=== PATIENT | female | born 1945 ===

== ENCOUNTER → 2017-10-15 14:47 | Outpatient (CLI) | payer MEDICARE ==
[2017-10-15 15:52] LABS: ALBUMIN 3.2 g/dL (3.4-5.0); ANION GAP 1.7 mmol/L (8-16); BILIRUBIN - TOTAL 0.29 mg/dL (0.2-1.3); CALCIUM 8.5 mg/dL (8.5-10.1); CREATININE - SERUM 1.1 mg/dL (0.6-1.3); POTASSIUM - SERUM 3.4 mmol/L (3.5-5.1); PROTEIN - SERUM 7.2 g/dL (6.4-8.2)
[2017-10-15 15:59] LABS: CARBON DIOXIDE 45.7 mmol/L (21.0-32.0)
== END | disposition home or self-care (01) ==
LOC: D.LABREF 14:47
PROVIDERS: Internal Medicine
DX: I25.10 Atherosclerotic heart disease of native coronary artery without angina pectoris (principal)